=== PATIENT | female | born 1950 | race Caucasian/White ===

== ENCOUNTER → 2017-01-17 | Outpatient (CLI) | payer OTHER ==
[~2017-01-17] VITALS: Ht 170.2 cm; Wt 99.8 kg
[~2017-01-17] MED LIST: ALLEGRA ALLERG180 MG PO; ASPIR 8181 MG PO; ATORVASTATIN CA40 MG PO; CALCIUM 500 +1 EAC5 PO; CHLORTHALIDONE25 MG PO; CLONAZEPAM 0.50.5 M1 PO; FLONASE 0.05%50 MCG NASAL; KLOR-CON 1010 MEQ PO; L-LYSINE500 M1 PO; LEXAPRO 10 MG T10 M2 PO; PROTONIX40 M1 PO; SINGULAIR 10 MG10 M1 PO; SPIRONOLACTONE25 M1 PO; TOPROL XL50 MG PO
--- NOTE | ~2017-01-17 | S ---
[facility] [place] [address] SURGICAL PATH RPT PROCEDURE Name: AMELIA TRUJILLO Room #: REG [facility].#: [id number] Admission: 01/17/17 Date of : 48 Discharge: Report #: [id number] Path Case #: [id number] PATHOLOGY REPORT COLLECTION DATE: 01/17/2017 RECEIVED DATE: 01/18/2017 SUBMITTING PHYS: Dr. Abdulkadir Medina OTHER PHYS: Dr. Rolo Armendariz SPECIMEN(S) RECEIVED: A.Polyp at cecum x 2 B.Polyp at hepatic x 2 C.Polyp at sigmoid * * * * * * * * * * * * FINAL DIAGNOSIS: A. Polyp x2, cecum, endoscopic biopsy: - Tubular adenoma. - Negative for high grade dysplasia. B. Polyp x2, at hepatic, endoscopic biopsy: - Tubular adenoma. - Negative for high grade dysplasia. C. Polyp, at sigmoid colon, endoscopic biopsy: - Hyperplastic polyp. - Negative for dysplasia. (IUV:csd; d/t: 01/21/2017) PATHOLOGIST: Concepcion Swift M.D. REPORT ELECTRONICALLY SIGNED BY: Concepcion Swift M.D. DATE/TIME: 01/21/2017 17:24 * * * * * * * * * * * * GROSS PATHOLOGY: A. Received in formalin labeled "Amelia Trujillo, polyp at cecum 2," are four segments of kauffman soft tissue measuring 0.9 x 0.8 x 0.1 cm in aggregate dimensions and ranging from 0.2 to 0.7 cm in maximum dimension. The specimen is submitted entirely in cassette A1. B. Received in formalin labeled "Amelia Trujillo, polyp at hepatic 2," are two segments of kauffman soft tissue measuring 0.6 x 0.5 x 0.1 cm in aggregate dimensions and ranging 0.5 cm each in maximum dimension. The specimen is submitted entirely in cassette B1. C. Received in formalin labeled "Amelia Trujillo, polyp at sigmoid colon," are four segments of kauffman soft tissue measuring 0.8 x 0.6 x 0.1 cm in aggregate dimensions and ranging from 0.1 to 0.5 cm in maximum dimension. The specimen is submitted entirely in cassette C1. (CAA; 01/19/2017) [address] [place] [address] SURGICAL PATH RPT PROCEDURE Name: AMELIA TRUJILLO Room #: [facility].#: [id number] Admission: 01/17/17 Date of : 48 Discharge: Report #: [id number] Path Case #: [id number] CLINICAL HISTORY: History of polyps INITIAL CPT CODE(S): A; 96321 B; 79098 C; 15681 Professional services performed by [facility] [address], [place] [address] Technical services performed by [facility] at [address] [place] [address], [address] [address]. [facility] [address] [place] [address] PHONE: [phone] DIRECTOR: Nahid Silva M.D. * * * END OF REPORT * * *
--- NOTE | ~2017-01-17 | P ---
[facility] [place] [address] PROCEDURE REPORT Name: DREW TRUJILLO Room #: REG [facility]#: [id number] Admission: 01/17/17 Attend Phys: Abdulkadir Medina MD Discharge: Date of : 48 Report #: [id number] THIS REPORT FOR: //name// CC: Abdulkadir Armendariz MD DATE OF SERVICE: 01/17/2017 BRIEF HISTORY: The patient is a 66-year-old woman with history of multiple colon adenomas in the past for high risk screening colonoscopy. PREOPERATIVE DIAGNOSIS: High risk screening colonoscopy due to history of colon polyps. POSTOPERATIVE DIAGNOSES: 1. Multiple colon polyps. 2. Moderate diverticulosis coli, sigmoid colon. 3. Small internal hemorrhoids. SPECIMEN: 1. Cecal polyps x 2. 2. Hepatic flexure polyps x 2. 3. Sigmoid colon polyp. MEDICATIONS: Deep sedation with propofol per anesthesia. ESTIMATED BLOOD LOSS: 3 mL. PROCEDURE: Colonoscopy to cecum and terminal ileum with snare polypectomy and biopsy. FINDINGS: Prior to propofol sedation, procedure of colonoscopy discussed with the patient as well as potential risks and its complications. She indicates she understands and desires to proceed. DESCRIPTION OF PROCEDURE: With the patient in left lateral decubitus position, digital examination was completed which revealed no abnormalities. Subsequently, the Kextil video colonoscope was introduced into the rectum and advanced under direct vision to the cecum. Done with minimal difficulty. The cecum was identified by the ileocecal valve and the appendiceal orifice. I was able to visualize the distal segment of terminal ileum, which was inspected and noted to be unremarkable. At that point, the scope was slowly withdrawn and careful circumferential views obtained including retroflexing the scope in the ascending colon. As we withdraw the scope, the prep was noted to have some limitations. As we withdrew the scope, we were able to wash, lavage and [facility] [address] [place] [address] PROCEDURE REPORT Name: DREW TRUJILLO Room #: REG [facility].#: [id number] Admission: 01/17/17 Attend Phys: Abdulkadir Medina MD Discharge: Date of : 48 Report #: [id number] irrigate and suction and remove much of the material. With cleaning, we were able to obtain an adequate prep. The mucosa was within normal limits, normal vascular pattern, normal light reflex. I was able to advance the tip of the scope to the mouth of the ileocecal valve and see a villous pattern. However, I could not deeply intubate the ileum due to looping of the scope. As we withdrew the scope, the mucosa was inspected. In the cecum, 2 diminutive polyps were seen and removed by biopsy. As we further withdrew the scope, 2 polyps were seen the hepatic flexure, one was about a 5 mm sessile polyp, removed by cold snare polypectomy. The other was a diminutive polyp seen and removed by biopsy. As we withdrew the scope, no additional abnormalities were noted until the left colon was reached. In the sigmoid colon, there was moderate sigmoid diverticular disease without endoscopic evidence of diverticulitis. In the distal sigmoid, a diminutive polyp was seen and removed by biopsy. Scope was further withdrawn and no additional neoplastic lesions were seen. Scope was withdrawn to the rectum and no abnormalities were seen until we retroflexed and saw some small internal hemorrhoids. Scope was withdrawn. The patient tolerated the procedure well. CONDITION OF THE PATIENT UPON DISCHARGE: Following procedure, the patient drowsy, aroused, conversant and will be discharged home when fully ambulatory. INSTRUCTIONS TO THE PATIENT AND FAMILY AT THE TIME OF DISCHARGE: Five polyps as noted above. We will follow up on the path report. If 3 or more adenomas, she is to return in 3 years; if only 1 or 2 are adenomas, 5 years would be indicated. Suggest high fiber diet for her diverticular disease. In addition, the patient returned to see me in followup in several weeks for further discussion and evaluation of her abnormal liver function studies. Last colonoscopy was more than 5 years ago. Withdrawal time from the cecum was 19 minutes. <ELECTRONICALLY SIGNED> By: Abdulkadir Medina MD 01/18/17 1151 1107 1240 Abdulkadir Medina MD /nt
== END | disposition home or self-care (01) ==
LOC: GI 09:14
DX: Z09 Encounter for follow-up examination after completed treatment for conditions other than malignant neoplasm (principal); D12.3 Benign neoplasm of transverse colon; D12.0 Benign neoplasm of cecum; K63.5 Polyp of colon; K57.30 Diverticulosis of large intestine without perforation or abscess without bleeding; K64.8 Other hemorrhoids; F32.89 Other specified depressive episodes; G47.33 Obstructive sleep apnea (adult) (pediatric); I10 Essential (primary) hypertension; E78.00 Pure hypercholesterolemia, unspecified; K21.9 Gastro-esophageal reflux disease without esophagitis; E05.00 Thyrotoxicosis with diffuse goiter without thyrotoxic crisis or storm; Z87.19 Personal history of other diseases of the digestive system; Z90.49 Acquired absence of other specified parts of digestive tract; Z87.891 Personal history of nicotine dependence; Z98.890 Other specified postprocedural states; Z88.0 Allergy status to penicillin; Z88.2 Allergy status to sulfonamides; Z88.8 Allergy status to other drugs, medicaments and biological substances; Z79.82 Long term (current) use of aspirin; Z79.899 Other long term (current) drug therapy
CPT/HCPCS: 62110; 62900

== ENCOUNTER → 2018-02-07 | Outpatient (CLI) | payer OTHER | LOC: RAD 11:36 | DX: Z12.31 Encounter for screening mammogram for malignant neoplasm of breast (principal) ==

== ENCOUNTER → 2019-04-08 | Outpatient (CLI) | payer OTHER | LOC: RAD 13:52 | DX: Z12.31 Encounter for screening mammogram for malignant neoplasm of breast (principal) ==

== ENCOUNTER → 2019-05-19 | Outpatient (CLI) | payer OTHER | LOC: ULTRA 13:51 | DX: N63.10 Unspecified lump in the right breast, unspecified quadrant (principal) ==

== ENCOUNTER → 2021-03-08 | Outpatient (CLI) | payer OTHER | LOC: BC 12:52 | PROVIDERS: ATTEND Family Medicine | DX: Z12.31 Encounter for screening mammogram for malignant neoplasm of breast (principal) ==

== ENCOUNTER → 2021-03-10 | Outpatient (CLI) | payer OTHER | LOC: BC 12:15 → ULTRA 12:15 | PROVIDERS: ATTEND Family Medicine | DX: R92.1 Mammographic calcification found on diagnostic imaging of breast (principal) ==

== ENCOUNTER → 2021-03-17 | Outpatient (CLI) | payer OTHER ==
--- NOTE | 2021-03-21 12:07 | PATH ---
[facility] [address] [place] [address] PATHOLOGY RPT PROCEDURE Name: AMELIA TRUJILLO Room #: REG [facility] M.R.#: [id number] Admission: 03/17/21 Date of : 48 Discharge: Report #: [id number] Path Case #: [id number] [facility] Accession Number: [id number] . 01 Material submitted: . breast - LEFT BREAST CALCIFICATION. Modifiers: left . 02 Diagnosis: Breast, left breast central, stereotactic needle core biopsy: - Proliferative fibrocystic changes with fibroadenomatoid changes, adenosis, minute fibroadenoma, columnar cell change, and usual ductal hyperplasia. - Calcifications identified in association with minute fibroadenoma and benign breast tissue. - Negative for atypia or malignancy. (IUV:marlena; 03/20/2021) QMS 03/21/2021 1149 Local . 02 Comment: Dr. Clarisse Hudson has seen retail representative slides of this case and concurs with the diagnosis rendered. (IUV:marlena; 03/20/2021) . 02 Electronically signed: . Concepcion Swift MD, Pathologist NPI- [id number] . 01 Gross description: . The specimen is received in formalin, labeled "Amelia Trujillo, left". The specimen is additionally labeled on the requisition as, "left breast central". Received are multiple needle cores of fibrofatty tissue measuring 3.6 x 3.4 x 0.5 cm in aggregate dimensions. Also received within the specimen container is a plastic cassette containing a single needle core of fibrofatty tissue measuring 2.0 x 0.5 x 0.4 cm. The suspect tissue is transferred to cassette A1, with the remainder of the specimen submitted in cassettes A2 through A4. The cold ischemic time is 6 minutes. The total formalin fixation time is 9 hours. (CAA; 03/17/2021) QAC/QAC 03/20/2021 1250 Local . 02 Pathologist provided ICD-10: N60.12, N60.22, D24.2, N62 . 02 CPT . 720529 Specimen Comment: A courtesy copy of this report has been sent to [phone], [phone] [address] PATHOLOGY RPT PROCEDURE Name: AMELIA TRUJILLO [id number] Admission: 03/17/21 Date of : 48 Discharge: Report #: [id number] Path Case #: [id number] Specimen Comment: [id number] Specimen Comment: Report sent to / DR WAGGONER Performed at: [address], [place] [id number] MD Dc Hernandez MD Phone: [phone] Performed at: [address] [id number] MD Concepcion Swift MD Phone: [phone]
== END | disposition home or self-care (01) ==
LOC: BC 11:18 → ULTRA 12:09 → BC 12:10
PROVIDERS: ATTEND Family Medicine
DX: R92.1 Mammographic calcification found on diagnostic imaging of breast (principal); D24.2 Benign neoplasm of left breast; N60.12 Diffuse cystic mastopathy of left breast; N60.22 Fibroadenosis of left breast; N62 Hypertrophy of breast

== ENCOUNTER → 2021-09-20 | Outpatient (CLI) | payer OTHER | LOC: BC 09-15 09:52 | PROVIDERS: ATTEND Family Medicine | DX: R92.8 Other abnormal and inconclusive findings on diagnostic imaging of breast (principal) ==